=== PATIENT | female | born 1940 | race American Indian/Alaskan Native ===

== ENCOUNTER 2016-05-10 21:52 | Emergency (ER) | payer MEDICARE ==
[~2016-05-10 21:52] MED LIST: ADRENALIN ONE
--- NOTE | 2016-05-10 22:15 | Emergency Department Report ---
ED CPR HPI - General Stated Complaint: CARDIAC ARREST Time Seen by Provider: 05/10/16 22:08 Source: EMS Mode of arrival: Stretcher Limitations: Altered Mental Status, Physical Limitation - History of Present Illness Initial Comments: 75-year-old female presents to the hospital in cardiopulmonary arrest. Apparently last normal time was 8:50pm. EMS received call at 9:10pm of unresponsive and pulselessness. Bystander CPR upon their arrival with supplemental oxygenation. Patient was in asystole upon their arrival. She was intubated with a Combitube received. Patient received 1 dose epinephrine prior to arrival. Patient presents to the ED still in asystole. - Related Data Home Medications Medication Instructions Recorded Confirmed Last Taken Benztropine [Cogentin] 1 mg PO BID 07/06/13 12/26/13 11/09/13 Previous Rx's Medication Instructions Recorded Last Taken Type Benztropine [Cogentin] 1 mg PO BID #60 tablet 12/31/13 Unknown Rx Divalproex Sodium [Divalproex 500 mg PO BID #60 tab.er.24h 12/31/13 Unknown Rx Sodium ER] OLANzapine [ZyPREXA] 5 mg PO QDAY #30 tablet 12/31/13 Unknown Rx clonazePAM [KlonoPIN] 0.5 mg PO BID #60 tablet 12/31/13 Unknown Rx levETIRAcetam [Keppra TAB] 500 mg PO BID #60 tablet 12/31/13 Unknown Rx Allergies Allergy/AdvReac Type Severity Reaction Status Date / Time No Known Allergies Allergy Verified 11/10/13 08:30 ED Review of Systems ROS: Stated complaint: CARDIAC ARREST Other details as noted in HPI Comment: Unobtainable due to pts medical conditions ED Past Medical Hx - Past Medical History Hx Hypertension: Yes Hx Seizures: Yes Hx Psychiatric Treatment: Yes (schizophrenia) Hx Dementia: Yes - Surgical History Additional Surgical History: Pt states she "may have had some surgeries" - Social History Smoking Status: Unknown if ever smoked - Medications Home Medications: Home Medications Medication Instructions Recorded Confirmed Last Taken Type Benztropine [Cogentin] 1 mg PO BID 07/06/13 12/26/13 11/09/13 History Benztropine [Cogentin] 1 mg PO BID #60 tablet 12/31/13 Unknown Rx Divalproex Sodium [Divalproex 500 mg PO BID #60 tab.er.24h 12/31/13 Unknown Rx Sodium ER] OLANzapine [ZyPREXA] 5 mg PO QDAY #30 tablet 12/31/13 Unknown Rx clonazePAM [KlonoPIN] 0.5 mg PO BID #60 tablet 12/31/13 Unknown Rx levETIRAcetam [Keppra TAB] 500 mg PO BID #60 tablet 12/31/13 Unknown Rx ED Physical Exam - Other Other exam information: General: Unresponsive Head exam: Atraumatic, normocephalic Eyes exam: Pupils fixed and dilated ENT: Orally intubated with Combitube Neck exam: Normal inspection Respiratory exam: No spontaneous respirations, diminished breath sounds bilaterally with bagging Cardiovascular: Pulseless, no audible heart beat Abdomen: Soft, mildly distended abdomen Extremity: No spontaneous movement Back: Normal Inspection Neurologic: GCS 3 ED Course - Reevaluation(s) Reevaluation #1: 05/10/16 22:15 Patient given 3 more rounds of epinephrine and Accu-Chek verified. Patient remains in asystole and therefore further resuscitation efforts discontinued. Time of 9:55 PM ED Medical Decision Making - Medical Decision Making Despite resuscitation efforts patient remains in asystole and time of is 9 :55 PM. Patient's daughter and other family member informed the patient's in person in the ED - Differential Diagnosis arrhythmia, CVA, PE, MA Critical Care Time: Yes (15) Critical care attestation.: If time is entered above; I have spent that time in minutes in the direct care of this critically ill patient, excluding procedure time. ED Disposition Clinical Impression: Cardiopulmonary arrest Disposition: Is pt being admited?: No Condition: Stable Time of Disposition: 23:41
== END 2016-05-11 00:17 ==
LOC: ED 21:52
DX: I46.9 Cardiac arrest, cause unspecified (principal); I10 Essential (primary) hypertension; F20.9 Schizophrenia, unspecified; F03.90 Unspecified dementia, unspecified severity, without behavioral disturbance, psychotic disturbance, mood disturbance, and anxiety
CPT/HCPCS: 82962; 92950; 99285; J0171